=== PATIENT | male | born 1970 | race African-American/Black ===

== ENCOUNTER 2017-03-15 15:48 | Emergency (ER) | payer BC ==
--- NOTE | ~2017-03-15 | EKG ---
PATIENT: JERRY JACINTO UNIT #: [id number] Ventricular Rate: 59 BPM Atrial Rate: 59 BPM P-R Interval: 174 ms QRS Duration: 104 ms Q-T Interval: 404 ms QTC Calculation(Bezet): 399 ms P Dilling[place]: 9 degrees Calculated R Dilling[place]: 40 degrees Calculated T Dillingham: 8 degrees Diagnosis Line: Sinus bradycardia Diagnosis Line: Otherwise normal ECG Diagnosis Line: Diagnosis Line: Confirmed by JACKIE CHOPRA MD ([id number]) on Diagnosis Line: 03/15/2017 4:00:43 PM INTERPRETING MD: BETH
--- NOTE | ~2017-03-15 | CR72 ---
[facility] A Service of [facility] & [facility] RADIOLOGY TEXT RESULTS PATIENT: JERRY JACINTO LOCATION: CEDOF [id number] : [birth year] UNIT #: [id number] AGE: [address]: So Lee MD SEX: M ORDER DR: [id number] [facility] [address] [facility]. [place], [place] [address] [id number] MR#: [id number] Acc #: [id number] NAME: JERRY JACINTO : 1970 SEX: M STUDY DATE/TIME: 03/15/2017 15:07 UNIT: CEDOF ROOM: 12000 STUDY DESCRIPTION: CR Chest Single View Portable Attending Physician: So Lee M.D. Ordering Physician: Martell Velez M.D. Primary Care Physician: Primary Care Physician No MEDICAL IMAGING REPORT This report is preliminary unless electronic signature is present EXAM Portable chest. HISTORY Syncope today. Congestion. FINDINGS Mild interstitial prominence in both lungs, likely accentuated by low lung volumes. No definite infiltrates or effusions. Cardiac and mediastinal contours are probably within normal limits. Mild right thoracic curve. IMPRESSION No acute findings. Relatively low lung volumes accentuate the cardiac size. No focal infiltrates or effusions. Dictated by... Ovi Wu M.D. THIS IS AN ELECTRONICALLY VERIFIED REPORT Ovi Wu M.D. at 03/16/2017 10:57 AM TRACIE/romeo TD: 03/16/2017 01:40 JOB #: [id number] MEDICAL IMAGING REPORT Page 1 of 1 COPY
--- NOTE | ~2017-03-15 | CT71 ---
[facility] A Service of [facility] RADIOLOGY TEXT RESULTS PATIENT: JERRY JACINTO LOCATION: [facility] : [birth year] UNIT #: [id number] AGE: [address]: So Lee MD SEX: M ORDER DR: [id number] [facility] [address] [facility]. [place], [place] [address] [id number] I MR#: [id number] Acc #: [id number] NAME: JERRY JACINTO : 1970 SEX: M STUDY DATE/TIME: 03/15/2017 14:51 UNIT: CEDOF ROOM: 84991 STUDY DESCRIPTION: CT Head Wo Contrast Attending Physician: So Lee M.D. Ordering Physician: Martell Velez M.D. Primary Care Physician: Primary Care Physician No MEDICAL IMAGING REPORT This report is preliminary unless electronic signature is present EXAM CT head without contrast dated 03/15/2017. COMPARISON None. HISTORY Syncope at [address] of the head was obtained without contrast in the axial plane as per the protocol. This CT exam was performed with one or more of the following radiation dose reduction techniques: Automatic exposure control, adjustment of mA and/or kV according to patient size, and iterative reconstruction. Axial noncontrast images were obtained from the skull base to the vertex. Ventricular size and configuration are normal. There is no evidence of acute infarct or hemorrhage. There are no extra-axial fluid collections. No mass lesion or mass effect is seen. There are no skull fractures. Nasal septum is deviated to the left. IMPRESSION Normal noncontrast head CT. Dictated by... Aneudy Puri M.D. THIS IS AN ELECTRONICALLY VERIFIED REPORT Aneudy Puri M.D. at 03/16/2017 1:46 PM CPR/psc [facility] A Service of [facility] RADIOLOGY TEXT RESULTS PATIENT: JERRY JACINTO LOCATION: [facility] : 66 UNIT #: [id number] AGE: [address]: So Lee MD SEX: M ORDER DR: TD: 03/16/2017 01:02 JOB #: [id number] MEDICAL IMAGING REPORT Page 1 of 1 COPY
[2017-03-15 14:58] LABS: BASOPHIL% 0.5 % (0-2.5); EOSINOPHIL# 0.5 X10e3 (0-0.7); EOSINOPHIL% 5.9 % (0.0-7.0); HEMATOCRIT 42.5 % (38.0-50.0); HEMOGLOBIN 13.2 gm/dL (13.0-16.0); LYMPHOCYTE# 2.4 X10e3 (1.0-3.5); LYMPHOCYTE% 31.3 % (17.0-45.0); MEAN CORPUSCULAR HEMOGLOBIN 23.9 PG (28-34); MEAN CORPUSCULAR HGB CONC 31.1 g/dL (30-36); MEAN PLATELET VOLUME 9.9 FL (6.5-11.5); MONOCYTE# 0.8 X10e3 (0-1.0); MONOCYTE% 10.8 % (3.0-12.0); NEUTROPHIL% 51.5 % (40-75); PLATELET COUNT 209 X10e3 (140-420); RED BLOOD COUNT 5.52 X10e (3.90-5.60); RED CELL DISTRIBUTION WIDTH 14.5 % (11.0-15.5); WHITE BLOOD COUNT 7.8 X10e3 (4.0-10.5)
[2017-03-15 15:00] LABS: DIFF IND NO
[2017-03-15 15:12] LABS: PROTHROMBIN TIME (PATIENT) 10.4 SECONDS (9.6-11.5)
[2017-03-15 15:27] LABS: ALBUMIN SERUM 4.3 g/dL (3.5-5.0); BILIRUBIN, DIRECT 0.1 mg/dL (0.0-0.2); BILIRUBIN,INDIRECT 0.7 mg/dL (0.0-0.9); BILIRUBIN,TOTAL 0.8 mg/dL (0.2-2.0); BUN/CREATININE RATIO 8.33; CALCIUM SERUM 9.2 mg/dL (8.4-10.2); CREATININE SERUM 1.2 mg/dL (0.6-1.4); GLOM FILT RATE Estimated 71.1 mL/min (>60); POTASSIUM 4.1 mmol/L (3.5-5.1); PROTEIN TOTAL SERUM 8.1 g/dL (6.0-8.3)
[2017-03-15 15:29] LABS: POC - CKMB 2.5 ng/mL (0.0-7.9); POC - TROPONIN <0.05 ng/mL (<=0.05)
[2017-03-15] MEDS ORDERED: HYDROCODON-ACE1 EAC7 PO (16:03)
[2017-03-15 17:23] LABS: URINE SOURCE CLEAN CATCH
[2017-03-15 17:29] LABS: URINE APPEARANCE CLEAR; URINE BILIRUBIN NEG (NEG); URINE BLOOD NEG (NEG); URINE COLOR YELLOW; URINE GLUCOSE NEG (NEG); URINE KETONE TRACE (NEG); URINE LEUKOCYTE ESTERASE 2+ (NEG); URINE NITRATE NEG (NEG); URINE PH 5.5 (5-8); URINE PROTEIN NEG (NEG); URINE SPECIFIC GRAVITY 1.029 (1.003-1.035)
[2017-03-15 17:31] LABS: CULTURE INDICATED? YES; URBCS1 AUWI 0-2 /[HPF] (0-2); URINE BACTERIA AUWI NEG (NEGATIVE); URINE SQUAMOUS EPITHELIAL CELL OCC /[HPF]; UWBCS1 AUWI 25-50 (0-5)
[2017-03-15 17:39] LABS: AMPHETAMINE NEG (NEG); BARBITURATES NEG (NEG); BENZODIAZEPINES NEG (NEG); COCAINE NEG (NEG); MARIJUANA NEG (NEG); OPIATES NEG (NEG); TRICYCLIC ANTIDEPRESSANTS NEG (NEG); U METHADONE NEG (NEG)
== END 2017-03-15 18:30 | disposition home or self-care (01) ==
LOC: CED 15:48
PROVIDERS: Emergency Medicine
DX: R55 Syncope and collapse (principal); E78.5 Hyperlipidemia, unspecified; Z79.899 Other long term (current) drug therapy
CPT/HCPCS: 36415; 70450; 71010; 80048; 80076; 80307; 81003; 82553; 82947; 84484; 85025; 85610; 87086; 93005; 99285